=== PATIENT | female | born 1960 | race Caucasian/White ===

== ENCOUNTER 2016-10-30 11:29 | Outpatient (CLI) | payer OTHER ==
[~2016-10-30] VITALS: Ht 170.2 cm; Wt 96.4 kg
[2016-10-30 11:32] VITALS: BP 138/66; PULSE 89; RESP 18; Ht 170.2 cm; Wt 96.4 kg
[2016-10-30] MEDS ORDERED: ASPI-664 PO (11:51)
--- NOTE | 2016-10-30 12:16 | PN ---
Date/Time of Note Date/Time of Note DATE: 10/30/16 TIME: 12:11 Outpatient Progress Note Chief Complaint Chest pain/PUD/hyperlipidemia/anxiety HPI Chest pain/patient was recently hospitalized with chest pain, at present patient does not have a chest pain, patient able to ambulate without any chest pain, climb stairs, without any pain, PUD/no nausea vomiting, no heartburn, Hyperlipidemia/no xanthoma, patient has a history of hyperlipidemia in the family, at present I do not see any lab report which shows lipid panel, Anxiety/patient anxious and nervous, patient had a bad dreams, and she was having a problems and was hospitalized, at present patient still anxious, Review of Systems Const: No Fever, no chills, no Wt. loss, no Fatigue, normal appetite, no diaphoresis. Eyes: No pain, no discharge, no redness, no visual change, no foreign body. ENT: No pain, no bleeding, no congestion, no sore throat, no dysphagia, no discharge or rhinitis. Lymph: No adenopathy, no tender nodes, no lymphedema. Resp: No SOB, no cough, no sputum, no wheezing, no chest pain. CV: No chest pain, no palpitaions, no HODGSON, no PND, no edema. GI: Normal appetite, no pain, no nausea, no vomiting, no diarrhea, no blood, no constipation. : No frequency, no urgency, no dysuria, no hematuria, no flank pain, no discharge, no bleeding. Musc: No bone/joint pain, no back pain, no neck pain, no knee pain, no restricted ROM. Skin: No rash, no skin lesions, no erythema, no laceration, no bruising, no pruritus. Neuro: No CONNELL, no dizziness, no syncope, no seizure, no focal-weakness. Endo: No polyuria, no polydypsia, no dry-skin, no temp-intolerance. Psych: No hallucinations, no depression, patient has anxiety, no suicidal ideation. Ext: No edema, no pain, no ulcer, no weakness. Physical Exam Vital Signs Date Time Temp Pulse Resp B/P Pulse Ox O2 Delivery O2 Flow Rate FiO2 10/30/16 11:32 98.5 89 18 138/66 97 Room Air General Appearance: A [A 56 year-old female who appears well-developed, well- nourished, in no acute distress. HEENT: Head normocephalic, atraumatic. Pupils equal, round, reactive to light and accommodate. Sclerae are no jaundice. Nasal turbinates pink without erythema or nasal discharge. Mucous membranes pink and moist without lesions. Oropharynx clear without any exudate or discharge. NECK: Supple. Trachea midline, No thyromegaly, No cervical lymphadenopathy, No mass, No carotid bruits, No JVD, Carotid pulses 2+ bilaterally. PULMONARY: Clear to auscultaion bilaterally, No retractions, Chest expansion symmetric bilaterally, no rales, no ronchi, no dulness on percussion. CARDIAC: Normal SI and S2, Regular rate and rythm, no murmur, gallop, or rub. GASTROINTESTINAL: Abdomen is soft, non-tender, Non Rigid, No distention, Positive bowel sounds x4 quadrants, Liver normal. SKIN: Warm, dry, no rash, no bruise, no echmosis. EXTREMITIES: Bilateral lower extremities normal, no edema, no phlabitus, pulse palpable, no contracture. MUSCULOSKELETAL: Spine Normal, Non-tender, Normal range of motion, No swelling, no deformity, no clubbing, or cyanosis, the patient has no edema to bilateral lower extremities, dorsalis pedis pulses palpable bilaterally. NEUROLOGIC: The patient is awake, alert, oriented, responding to yes/no questions appropriately, moving all extremities, cranial nerve intact, normal strenght, normal power, normal coordination, normal gait. Allergies Coded Allergies: No Known Drug Allergies (Verified Allergy, Unknown, 10/30/16) PMH Anxiety/recently hospitalized with chest pain/hyperlipidemia/PUD Social Hx No smoking or drinking, no drugs, Family Hx Family history of hyperlipidemia, Assessment/Plan Impression Chest pain resolved/PUD/hyperlipidemia/anxiety Plan Patient education done about d hyperlipidemia, and related problem, patient also explained about anxiety, and education done, We will try to get lipid panel results, Patient encouraged to follow with the primary care physician, Patient will be started on BuSpar 10 mg p.o. twice daily for anxiety, numbers 60 Medications Home Meds Reported Medications Aspirin (Low Dose Aspirin) 81 Mg Tablet., 81 MG PO DAILY, #30 TAB 10/30/16 MARI SEGURA MD Oct 30, 2016 12:16
== END 2016-10-30 17:00 | disposition home or self-care (01) ==
LOC: DCC 11:29
PROVIDERS: ATTEND Internal Medicine
DX: R07.9 Chest pain, unspecified (principal); E78.5 Hyperlipidemia, unspecified; K27.9 Peptic ulcer, site unspecified, unspecified as acute or chronic, without hemorrhage or perforation; F41.9 Anxiety disorder, unspecified

== ENCOUNTER 2016-11-14 10:29 | Outpatient (CLI) | payer OTHER ==
[~2016-11-14] VITALS: Ht 170.2 cm; Wt 94.1 kg
[~2016-11-14 10:29] MED LIST: ASPI-664 PO
[2016-11-14 10:53] VITALS: BP 115/53; PULSE 77; RESP 18; Ht 170.2 cm; Wt 94.1 kg
--- NOTE | 2016-11-14 11:44 | PN ---
Date/Time of Note Date/Time of Note DATE: 11/14/16 TIME: 11:40 Outpatient Progress Note Chief Complaint Anxiety/chest pain/PUD/hyperlipidemia/weight gain HPI Anxiety/patient very anxious and nervous, patient had slight chest discomfort yesterday night when she started thinking coming to the office, no more chest pain before that, lasted for a few seconds, no radiation, no diaphoresis, Chest pain/minimal chest discomfort yesterday night, no more chest pain before that, patient was very anxious and nervous, and thinking about office visits today, PUD/no nausea vomiting or heartburn, hematemesis melena, Hyperlipidemia/no xanthoma, no abdominal pain, Weight gain/patient has gained weight recently, patient is eating more because of nervousness, Review of Systems Const: No Fever, no chills, no Wt. loss, no Fatigue, normal appetite weight gain recently,, no diaphoresis. Eyes: No pain, no discharge, no redness, no visual change, no foreign body. ENT: No pain, no bleeding, no congestion, no sore throat, no dysphagia, no discharge or rhinitis. Lymph: No adenopathy, no tender nodes, no lymphedema. Resp: No SOB, no cough, no sputum, no wheezing, no chest pain. CV: Last night chest pain, lasted a few seconds, no radiation, no diaphoresis, no palpitaions, no HODGSON, no PND, no edema. GI: Normal appetite, no pain, no nausea, no vomiting, no diarrhea, no blood, no constipation. : No frequency, no urgency, no dysuria, no hematuria, no flank pain, no discharge, no bleeding. Musc: No bone/joint pain, no back pain, no neck pain, no knee pain, no restricted ROM. Skin: No rash, no skin lesions, no erythema, no laceration, no bruising, no pruritus. Neuro: No CONNELL, no dizziness, no syncope, no seizure, no focal-weakness. Endo: No polyuria, no polydypsia, no dry-skin, no temp-intolerance. Psych: No hallucinations, no depression, no anxiety, no suicidal ideation. Ext: No edema, no pain, no ulcer, no weakness. Physical Exam Vital Signs Date Time Temp Pulse Resp B/P Pulse Ox O2 Delivery O2 Flow Rate FiO2 11/14/16 10:53 98.2 77 18 115/53 95 Room Air General Appearance: A 56 year-old female who appears well-developed, well- nourished, in no acute distress.] HEENT: Head normocephalic, atraumatic. Pupils equal, round, reactive to light and accommodate. Sclerae are no jaundice. Nasal turbinates pink without erythema or nasal discharge. Mucous membranes pink and moist without lesions. Oropharynx clear without any exudate or discharge. NECK: Supple. Trachea midline, No thyromegaly, No cervical lymphadenopathy, No mass, No carotid bruits, No JVD, Carotid pulses 2+ bilaterally. PULMONARY: Clear to auscultaion bilaterally, No retractions, Chest expansion symmetric bilaterally, no rales, no ronchi, no dulness on percussion. CARDIAC: Normal SI and S2, Regular rate and rythm, no murmur, gallop, or rub. GASTROINTESTINAL: Abdomen is soft, non-tender, Non Rigid, No distention, Positive bowel sounds x4 quadrants, Liver normal. SKIN: Warm, dry, no rash, no bruise, no echmosis. EXTREMITIES: Bilateral lower extremities normal, no edema, no phlabitus, pulse palpable, no contracture. MUSCULOSKELETAL: Spine Normal, Non-tender, Normal range of motion, No swelling, no deformity, no clubbing, or cyanosis, the patient has no edema to bilateral lower extremities, dorsalis pedis pulses palpable bilaterally. NEUROLOGIC: The patient is awake, alert, oriented, responding to yes/no questions appropriately, moving all extremities, cranial nerve intact, normal strenght, normal power, normal coordination, normal gait. Allergies Coded Allergies: No Known Drug Allergies (Verified Allergy, Unknown, 10/30/16) PMH No change Social Hx No change Family Hx No change Assessment/Plan Impression Anxiety/chest pain resolved/PUD/hyperlipidemia/weight gain Plan Patient feeling much better, no more chest pain at present, patient was very anxious yesterday, patient education done about anxiety, patient also has slight warm feeling, and have fan at night, patient may be going through menopausal syndrome, discussed with the patient, Increase activity, control the diet, control the weight, and blood pressure at present stable, increase exercise and lose weight, discussed with osteoporosis and menopause, Patient to follow with the primary care physician, Awaiting lab report, will check the lab report, and act accordingly, Medications Home Meds Reported Medications Aspirin (Low Dose Aspirin) 81 Mg Tablet., 81 MG PO DAILY, #30 TAB 10/30/16 MARI SEGURA MD Nov 14, 2016 11:44
== END 2016-11-14 16:32 | disposition home or self-care (01) ==
LOC: DCC 10:29
PROVIDERS: ATTEND Internal Medicine
DX: R07.9 Chest pain, unspecified (principal); E78.5 Hyperlipidemia, unspecified; F41.9 Anxiety disorder, unspecified; K27.9 Peptic ulcer, site unspecified, unspecified as acute or chronic, without hemorrhage or perforation; R63.5 Abnormal weight gain